=== PATIENT | male | born 1990 | race Caucasian/White ===

== ENCOUNTER 2016-08-08 15:58 | Emergency (ER) | payer BC ==
[~2016-08-08] VITALS: Ht 188 cm; Wt 97.7 kg
[~2016-08-08 15:58] MED LIST: NO HOME MEDICATIONS; NORCO 325 MG-51 TAB PO
[2016-08-08 16:03] VITALS: BP 126/62; PULSE 75; TEMP 97.8
[2016-08-08] MEDS ORDERED: ULTRAM 50MG TAB50 MG PO (19:04)
== END 2016-08-08 19:22 | disposition home or self-care (01) ==
LOC: COL.ER 15:58
DX: S81.012A Laceration without foreign body, left knee, initial encounter (principal); S90.511A Abrasion, right ankle, initial encounter; Z23 Encounter for immunization; V86.59XA Driver of other special all-terrain or other off-road motor vehicle injured in nontraffic accident, initial encounter; Y92.89 Other specified places as the place of occurrence of the external cause

== ENCOUNTER 2016-08-20 06:58 | Emergency (ER) | payer BC ==
[~2016-08-20 06:58] MED LIST changes: +ULTRAM 50MG TAB50 MG PO
[2016-08-20 06:59] VITALS: BP 133/59; PULSE 66; TEMP 97.8
== END 2016-08-20 07:20 | disposition home or self-care (01) ==
LOC: COL.ER 06:58
DX: Z48.02 Encounter for removal of sutures (principal)

== ENCOUNTER 2019-10-06 21:33 | Emergency (ER) | payer OTHER ==
[~2019-10-06] VITALS: Ht 182.9 cm; Wt 102.3 kg
[2019-10-06 21:41] VITALS: BP 115/78; PULSE 71; TEMP 97.9
[2019-10-06] MEDS ORDERED: LAMISIL250 M1 PO (22:00)
== END 2019-10-06 22:34 | disposition home or self-care (01) ==
LOC: COL.ER 21:33
DX: B35.3 Tinea pedis (principal)

== ENCOUNTER 2023-12-31 19:18 | Emergency (ER) | payer OTHER ==
[~2023-12-31] VITALS: Ht 188 cm; Wt 113.6 kg
[~2023-12-31 19:18] MED LIST changes: +LAMISIL250 M1 PO
[2023-12-31 19:23] VITALS: BP 144/98; TEMP 98.1
[2023-12-31] MEDS ORDERED: Erythromycin 0.5% Ophth Oint 3.5 GM TUBE OP ONE (19:45)
[2023-12-31] MEDS ORDERED: Tetracaine 0.5% Ophth Soln 4 ML BOTTLE OP ONE (19:45)
[2023-12-31 20:54] VITALS: PULSE 70
== END 2023-12-31 20:40 | disposition home or self-care (01) ==
LOC: COL.ER 19:18
DX: S05.52XA Penetrating wound with foreign body of left eyeball, initial encounter (principal); W44.8XXA Other foreign body entering into or through a natural orifice, initial encounter